=== PATIENT | male | born 1975 ===

== ENCOUNTER 2020-01-08 09:34 | Outpatient (REF) | payer BC, SELFPAY ==
[2020-01-08 12:01] LABS: Alanine Aminotransferase 90 U/L (0-40); Albumin Level 4.7 g/dL (3.5-5.0); Alkaline Phosphatase 62 U/L (39-117); Anion Gap 11 (12-20); Aspartate Amino Transferase 41 U/L (5-37); Bilirubin Total 0.9 mg/dL (0.0-1.0); Blood Urea Nitrogen 26 mg/dL (9-16); Calcium 9.5 mg/dL (8.4-10.2); Carbon Dioxide 29 mmol/L (22-29); Chloride 103 mmol/L (96-108); Cholesterol 231 mg/dL; Estimated Glomerular Filt Rate > 60; Glucose Fasting 80 mg/dL (60-99); HDL Cholesterol 56 mg/dL; LDL Cholesterol Calculated 162 mg/dl; Potassium 4.3 mmol/l (3.3-5.1); Sodium 139 mmol/L (135-145); TSH reflex Free T4 1.24 mIU/mL (0.32-4.0); Total Protein 7.2 g/dL (6.5-8.0); Triglycerides 69 mg/dL
== END 2020-01-08 09:35 | disposition home or self-care (01) ==
LOC: HO.HMGCLDS 09:34
PROVIDERS: PCP Nurse Practitioner Family; Visit Provider Nurse Practitioner Family
DX: Z00.00 Encounter for general adult medical examination without abnormal findings (principal)
CPT/HCPCS: 80053; 80061; 84443

== ENCOUNTER 2022-10-17 14:57 | Outpatient (AMB) | payer SELFPAY ==
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
[2022-10-17 15:59] VITALS: BP 120/80; PULSE 91; O2SAT 98; BMI 28.8
== END 2022-10-17 16:44 | disposition home or self-care (01) ==
PROVIDERS: PCP Nurse Practitioner Family; Visit Provider Internal Medicine
DX: M25.461 Effusion, right knee (principal); R20.2 Paresthesia of skin; R35.0 Frequency of micturition
CPT/HCPCS: 82948; 99214

== ENCOUNTER 2022-10-18 07:14 | Outpatient (REF) | payer SELFPAY ==
[2022-10-18 12:11] LABS: Estimated Average Glucose 105 mg/dL; Hemoglobin A1c % 5.3 % (<6.0)
[2022-10-18 12:16] LABS: Hematocrit 48.2 % (42.0-52.0); Hemoglobin 15.2 g/dl (14.0-18.0); Mean Corpuscular HGB Conc 31.5 g/dl (31.0-36.0); Mean Corpuscular Hemoglobin 29.6 pg (27.0-33.0); Mean Platelet Volume 12.4 fL (9.4-12.4); Platelet Count 164 X10*3/uL (160-400); Red Blood Count 5.13 X10*6/uL (4.60-5.80); Red Cell Distribution Width 12.6 % (11.0-16.0)
[2022-10-18 12:45] LABS: Anion Gap 10 (12-20); Blood Urea Nitrogen 26 mg/dL (9-16); Calcium 9.5 mg/dL (8.4-10.2); Carbon Dioxide 30 mmol/L (22-29); Chloride 105 mmol/L (96-108); Estimated Glomerular Filt Rate > 60; Glucose Random 140 mg/dL (60-115); Potassium 4.2 mmol/L (3.3-5.1); Sodium 141 mmol/L (135-145)
[2022-10-18 12:58] LABS: Erythrocyte Sedimentation Rate 3 MM/HR (0-15)
== END 2022-10-18 07:15 | disposition home or self-care (01) ==
LOC: HO.HMGCLDS 07:14
PROVIDERS: PCP Nurse Practitioner Family; Visit Provider Internal Medicine
DX: R20.2 Paresthesia of skin (principal)
CPT/HCPCS: 36415; 80048; 83036; 85027; 85652

== ENCOUNTER 2023-12-20 13:48 | Outpatient (AMB) | payer OTHER, SELFPAY ==
[2023-12-20 13:59] VITALS: BP 120/80; PULSE 77; O2SAT 98; BMI 30.1
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
== END 2023-12-20 14:44 | disposition home or self-care (01) ==
PROVIDERS: PCP Nurse Practitioner Family; Visit Provider Nurse Practitioner Family
DX: Z00.00 Encounter for general adult medical examination without abnormal findings (principal); Z12.5 Encounter for screening for malignant neoplasm of prostate; Z12.11 Encounter for screening for malignant neoplasm of colon; M51.16 Intervertebral disc disorders with radiculopathy, lumbar region

== ENCOUNTER → 2023-12-20 13:48 | Outpatient (BNVA) | payer BC, SELFPAY | PROVIDERS: PCP Nurse Practitioner Family; Visit Provider Nurse Practitioner Family | DX: Z00.00 Encounter for general adult medical examination without abnormal findings (principal); M51.16 Intervertebral disc disorders with radiculopathy, lumbar region | CPT/HCPCS: 96127 ==

== ENCOUNTER 2023-12-26 06:03 | Outpatient (REF) | payer OTHER, SELFPAY ==
[2023-12-26 10:02] LABS: MANUAL DIFF FLAG NO
[2023-12-26 10:17] LABS: Basophils Percent Auto 0.8 % (0-2); Eosinophils Absolute Auto 0.1 X10*3/uL (0.0-0.4); Eosinophils Percent Auto 1.6 % (0-4); Hematocrit 45.5 % (42.0-52.0); Imm Gran Abs Auto 0.01 X10*3/uL (0.00-0.03); Imm Gran Pct Auto 0.2 % (0.0-0.4); Lymphocytes Absolute Auto 1.5 X10*3/uL (1.2-4.9); Lymphocytes Percent Auto 29.4 % (20-40); Mean Corpuscular Hemoglobin 29.6 pg (27.0-33.0); Mean Corpuscular Volume 89.7 fL (80.0-98.0); Mean Platelet Volume 11.8 fL (9.4-12.4); Monocytes Absolute Auto 0.4 X10*3/uL (0.1-1.2); Monocytes Percent Auto 8.4 % (2-11); Neutrophils Percent Auto 59.6 % (45-73); Platelet Count 179 X10*3/uL (160-400); Red Blood Count 5.07 X10*6/uL (4.60-5.80); Red Cell Distribution Width 12.5 % (11.0-16.0); White Blood Count 5.1 X10*3/uL (4.8-10.8)
[2023-12-26 10:20] LABS: Appearance Urine Clear; Color Urine Yellow; Glucose Urine UA Negative (Negative); Leukocyte Esterase Urine Moderate (2+) (Negative); Nitrite Urine Negative (Negative); Specific Gravity - Urine 1.015 (1.005-1.025); UMIC TRIGGER UACC YES; Urine Blood Negative (Negative); Urine Ketones Negative (Negative); Urine Protein Negative (Neg-Trace)
[2023-12-26 10:26] LABS: Bacteria Urine None Seen (None Seen); Hyaline Casts Urine 0-2 /LPF (0-2); RBC Urine 0-2 /HPF (0-2); Squamous Epithelial Cell Urine 0-2 /HPF (0-2); UACC Culture Trigger YES; WBC Urine 21-50 /HPF (0-5)
[2023-12-26 10:32] LABS: Alanine Aminotransferase 43 U/L (0-40); Albumin Level 4.1 g/dL (3.5-5.0); Alkaline Phosphatase 63 U/L (39-117); Anion Gap 12 (12-20); Aspartate Amino Transferase 33 U/L (5-37); Bilirubin Total 0.5 mg/dL (0.0-1.0); Blood Urea Nitrogen 22 mg/dL (9-16); Calcium 9.2 mg/dL (8.4-10.2); Carbon Dioxide 26 mmol/L (22-29); Chloride 106 mmol/L (96-108); Cholesterol 187 mg/dL (<200); Estimated Glomerular Filt Rate > 60; Glucose Fasting 95 mg/dL (60-99); HDL Cholesterol 54 mg/dL (>40); LDL Cholesterol Calculated 113 mg/dL (<100); Potassium 4.1 mmol/L (3.3-5.1); Sodium 140 mmol/L (135-145); Total Protein 6.9 g/dL (6.5-8.0); Triglycerides 100 mg/dL (<150)
[2023-12-26 10:46] LABS: TSH reflex Free T4 1.97 uIU/mL (0.32-4.0)
[2023-12-26 10:51] LABS: Prostate Specific Antigen Scr 2.71 ng/mL (<0.05-4.0)
== END 2023-12-26 06:04 | disposition home or self-care (01) ==
LOC: HO.HMGCLDS 06:03
PROVIDERS: PCP Nurse Practitioner Family; Visit Provider Nurse Practitioner Family
DX: Z00.00 Encounter for general adult medical examination without abnormal findings (principal); Z12.5 Encounter for screening for malignant neoplasm of prostate
CPT/HCPCS: 36415; 80053; 80061; 81001; 81003; 84153; 84443; 85025; 87086

== ENCOUNTER 2024-01-09 08:28 | Outpatient (REF) | payer OTHER, SELFPAY ==
--- NOTE | ~2024-01-09 | US_ITS ---
EXAMINATION: US ABDOMEN COMPLETE CLINICAL INFORMATION: Abnormal levels of other serum enzymes. COMPARISON: Ultrasound abdomen complete 07/22/2015. TECHNIQUE: Real-time imaging of the abdominal viscera. FINDINGS: PANCREAS: Visualized portions are unremarkable. ABDOMINAL AORTA: The proximal, mid, and distal segments are normal in caliber. INFERIOR VENA CAVA: Visualized portions are normal. LIVER: The liver is normal in size. The liver contour is normal. Increased echogenicity of the liver parenchyma, this can be seen in the setting of hepatic steatosis or liver parenchymal disease. No focal hepatic lesion. There is no intrahepatic biliary duct dilatation seen. GALLBLADDER: The gallbladder is physiologically distended without evidence of stones, sludge, polyps, wall thickening or pericholecystic fluid. COMMON BILE DUCT: Normal in caliber measuring 0.37 cm in diameter. RIGHT KIDNEY: No hydronephrosis. No renal calculi or focal parenchymal lesions. The kidney measures 11.4 cm in maximum dimension. LEFT KIDNEY: No hydronephrosis. No renal calculi or focal parenchymal lesions. The kidney measures 12.7 cm in maximum dimension. SPLEEN: The spleen measures 11.0 cm in maximum dimension. FREE FLUID: None. US/US abdomen complete IMPRESSION: Increased echogenicity of the liver parenchyma, this can be seen in the setting of hepatic steatosis or liver parenchymal disease. Ultrasound otherwise normal. Electronically signed by: Jah Mccall MD 01/27/2024 01:00 PM [facility]
== END 2024-01-09 08:29 | disposition home or self-care (01) ==
LOC: HO.HMGCX 08:28
PROVIDERS: PCP Nurse Practitioner Family; Visit Provider Nurse Practitioner Family
DX: R74.8 Abnormal levels of other serum enzymes (principal)
CPT/HCPCS: 76700

== ENCOUNTER 2024-02-05 09:31 | Outpatient (AMB) | payer OTHER, SELFPAY ==
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
[2024-02-05 09:50] VITALS: BP 120/78; PULSE 83; O2SAT 99; BMI 29.7
== END 2024-02-05 10:22 | disposition home or self-care (01) ==
PROVIDERS: PCP Nurse Practitioner Family; Referring Provider Nurse Practitioner Family; Visit Provider Nurse Practitioner Family
DX: M51.16 Intervertebral disc disorders with radiculopathy, lumbar region (principal); M48.061 Spinal stenosis, lumbar region without neurogenic claudication; M54.50 Low back pain, unspecified; G89.29 Other chronic pain; M47.817 Spondylosis without myelopathy or radiculopathy, lumbosacral region
CPT/HCPCS: 99204

== ENCOUNTER 2024-02-20 11:32 | Outpatient (AMB) | payer OTHER, SELFPAY ==
[2024-02-20 11:39] VITALS: BP 122/80; PULSE 90; O2SAT 98; BMI 31.0
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
== END 2024-02-20 12:20 | disposition home or self-care (01) ==
PROVIDERS: PCP Nurse Practitioner Family; Visit Provider Internal Medicine
DX: M54.9 Dorsalgia, unspecified (principal); Z13.9 Encounter for screening, unspecified

== ENCOUNTER → 2024-02-20 11:32 | Outpatient (BNVA) | payer OTHER, SELFPAY | PROVIDERS: PCP Nurse Practitioner Family; Visit Provider Internal Medicine | DX: M54.9 Dorsalgia, unspecified (principal); Z87.442 Personal history of urinary calculi | CPT/HCPCS: 81003 ==

== ENCOUNTER 2024-04-29 09:58 | Outpatient (AMB) | payer OTHER, SELFPAY ==
[2024-04-29 10:02] VITALS: BP 112/70; PULSE 68; RESP 16; TEMP 36.7; O2SAT 97; BMI 30.3
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
--- OUTSIDE RECORDS SUMMARY | 2024-04-29 11:40 | XMS_ITS | Clinical Summary ---
Author Organization [facility] ity Address [address] [place] [address] Care Team Providers Care Tile Grader Name Role Phone Unavailable Primary Care Provider Unavailabl e Surgical History Surgery Date Site/Laterality Comments APPENDECTOMY PROCEDURE: HISTORICAL APPENDECTOMY Family History Medical History Relation Name Comments Depression Brother 1 Other: pad Grandparent 1 also with cad Relation Name Status Comments Brother 1 Brother 2 Grandparent 1 Grandparent 2 Social History Tobacco Use Types Packs/Day Years Used Date Smoking Tobacco: Never Smokeless Tobacco: Never Alcohol Use Standard Drinks/Week Comments Yes 0 (1 standard drink = 0.6 oz pur e alcohol) Sex and Gender Information Value Date Recorded Sex Assigned at Not on file Legal Sex Male 5:40 AM EST Gender Identity Not on file Sexual Orientation Not on file Obstetrics History Plan of Treatment Health Maintenance Due Date Last Done Comments Hepatitis B Vaccines (1 of 3 - 19+ 3-dose series) 1994 DTaP,Tdap,and Td Vaccines (2 - Td or Tdap) 01/03/2022 01/04/2012 Cholesterol Screening (Lipid Panel) 01/08/2022 Colorectal Cancer Screening: Colonoscopy 01/08/2022 Depression Screening 01/08/2022 HIV Screening 01/08/2022 Hepatitis C Screening 01/08/2022 Social Influencers of Health Screening 01/08/2022 COVID-19 Vaccine (2023-2 5 season) 2023 Influenza Vaccine (#1) 2023 HIB Vaccines Aged Out No longer eligi ble based on patient's age to complete this topic HPV Vaccines Aged Out No longer eligi ble based on patient's age to complete this topic Hepatitis A Vaccines Aged Out No long er eligible based on patient's age to complete this topic IPV Vaccines Aged Out No longer eligi ble based on patient's age to complete this topic MMR Vaccines Aged Out No longer eligi ble based on patient's age to complete this topic Meningococcal ACWY Vaccine Aged Out N o longer eligible based on patient's age to complete this topic Meningococcal B Vacine Aged Out No lo nger eligible based on patient's age to complete this topic Pneumococcal Vaccine: Pediat rics (0 to 5 Years) and At-Risk Patients (6 to 64 Years) Aged Out No longer eligi ble based on patient's age to complete this topic RSV Immunization Patients Un ally 20 months Aged Out No longer eligible b ased on patient's age to complete this topic Varicella Vaccines Aged Out No longer eligible based on patient's age to complete this topic
== END 2024-04-29 10:38 | disposition home or self-care (01) ==
LOC: HO.HMCC 09:59
PROVIDERS: PCP Nurse Practitioner Family; Visit Provider Nurse Practitioner Family
DX: M51.16 Intervertebral disc disorders with radiculopathy, lumbar region (principal); M54.50 Low back pain, unspecified; G89.29 Other chronic pain; K76.0 Fatty (change of) liver, not elsewhere classified

== ENCOUNTER → 2024-04-29 09:58 | Outpatient (BNVA) | payer OTHER, SELFPAY | PROVIDERS: PCP Nurse Practitioner Family; Visit Provider Nurse Practitioner Family ==

== ENCOUNTER 2024-05-19 08:54 | Outpatient (AMB) | payer OTHER, SELFPAY ==
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
[2024-05-19 09:00] VITALS: BP 131/63; PULSE 77; O2SAT 98; BMI 30.7
--- OUTSIDE RECORDS SUMMARY | 2024-05-19 09:43 | XMS_ITS | Clinical Summary ---
Author Organization [facility] ity Address [address] [place] [address] Care Team Providers Care Electronics Lead Name Role Phone Unavailable Primary Care Provider [...] Influencers of Health Screening 01/08/2022 COVID-19 Vaccine ( - 2023-2 5 season) 2023 Influenza Vaccine (Season Ended) 2024 HIB Vaccines Aged Out No longer eligi [...] age to complete this topic Meningococcal B Vaccine Aged Out No l onger eligible based on patient's age to complete [...]
== END 2024-05-19 09:28 | disposition home or self-care (01) ==
LOC: HO.PMC 08:55
PROVIDERS: PCP Nurse Practitioner Family; Visit Provider Nurse Practitioner Family
DX: M51.16 Intervertebral disc disorders with radiculopathy, lumbar region (principal); M48.061 Spinal stenosis, lumbar region without neurogenic claudication; M54.50 Low back pain, unspecified; G89.29 Other chronic pain; M47.817 Spondylosis without myelopathy or radiculopathy, lumbosacral region
CPT/HCPCS: 99214

== ENCOUNTER → 2024-05-19 08:54 | Outpatient (BNVA) | payer OTHER, SELFPAY | PROVIDERS: PCP Nurse Practitioner Family; Visit Provider Nurse Practitioner Family ==

== ENCOUNTER 2024-10-23 06:24 | Outpatient (REF) | payer OTHER, SELFPAY ==
--- NOTE | ~2024-10-23 | FL_ITS ---
EXAMINATION: FL GUIDANCE ONLY HISTORY: M51.16 - Intervertebral disc disorders with radiculopathy, lumbar region COMPARISON: None available. TECHNIQUE: Fluoroscopy time: 0.1 minute. Cumulative Dose: 3.87 mGy. DAP: 0.326 mGym2 Images: 3. FINDINGS: Fluoroscopic spot films of the lumbar spine demonstrate a needle and contrast material inferior to a right-sided pedicle. It is not possible to determine which level this represents on the basis of these images. FL/FL guidance in treatment room IMPRESSION: Fluoroscopy during procedure. Please see procedure report for additional information. Electronically signed by: Pierre Tyler MD 10/23/2024 03:17 PM EDT
--- OUTSIDE RECORDS SUMMARY | 2024-10-23 06:26 | XMS_ITS | Clinical Summary ---
Author Organization [facility] ity Address [address] [place] [address] Care Team Providers Care Colon And Rectal Surgeon Name Role Phone Unavailable Primary Care Provider [...] Panel) 01/08/2022 Colorectal Cancer Screening: Colonoscopy 01/08/2022 HIV Screening 01/08/2022 Hepatitis C Screening 01/08/2022 Social Influencers of Health Screening 01/08/2022 Depression Screening 02/06/2024 COVID-19 Vaccine (2023-2 5 season) 2024 Influenza Vaccine (#1) 2024 HIB Vaccines Aged Out No longer [...] 5 Years) and At-Risk Patients (6 to 49 Years) Aged Out No longer eligi ble based on patient's age to complete this topic RSV Immunization Patients Un ally 20 months Aged Out No longer eligible b ased on patient's age to complete this topic Varicella Vaccines Aged Out No longer eligible based on patient's age to complete this topic
== END 2024-10-23 06:25 | disposition home or self-care (01) ==
LOC: CF 06:24
PROVIDERS: Visit Provider Internal Medicine
DX: M51.16 Intervertebral disc disorders with radiculopathy, lumbar region (principal)
CPT/HCPCS: 64483; J1100; J2003; Q9967

== ENCOUNTER 2024-10-23 13:13 | Outpatient (AMB) | payer OTHER, SELFPAY ==
[2024-10-23 13:19] VITALS: BP 126/86; PULSE 91; RESP 16; O2SAT 98; BMI 30.7
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
[2024-10-23 13:45] VITALS: BP 118/79; PULSE 74; RESP 16; O2SAT 96
--- OUTSIDE RECORDS SUMMARY | 2024-10-23 15:14 | XMS_ITS | Clinical Summary ---
Author Organization [facility] [address] ity Address [address] [place] [address] Care Team Providers Care Information Management Specialist Name Role Phone Unavailable Primary Care Provider [...]
== END 2024-10-23 13:55 | disposition home or self-care (01) ==
LOC: HO.PMCPRC 13:13
PROVIDERS: PCP Nurse Practitioner Family; Visit Provider Internal Medicine
DX: M51.16 Intervertebral disc disorders with radiculopathy, lumbar region (principal)
CPT/HCPCS: 64483

== ENCOUNTER 2024-11-20 14:21 | Outpatient (AMB) | payer OTHER, SELFPAY ==
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
[2024-11-20 14:45] VITALS: BP 128/59; PULSE 92; O2SAT 98; BMI 31.3
== END 2024-11-20 15:26 | disposition home or self-care (01) ==
LOC: HO.PMC 14:22
PROVIDERS: PCP Nurse Practitioner Family; Visit Provider Nurse Practitioner Family
DX: M51.16 Intervertebral disc disorders with radiculopathy, lumbar region (principal); M54.50 Low back pain, unspecified; G89.29 Other chronic pain; M47.817 Spondylosis without myelopathy or radiculopathy, lumbosacral region; M53.3 Sacrococcygeal disorders, not elsewhere classified
CPT/HCPCS: 99214; G2211

== ENCOUNTER 2024-12-01 09:47 | Outpatient (AMB) | payer OTHER, SELFPAY ==
--- NOTE | 2024-12-01 10:17 | A.SPINEOV_ITS ---
Vital Signs 12/01/24 10:17 Height 5 ft 11 in Weight 215 lb BMI 30.0 Intake Visit Reasons: low back pain Intake Note: Mr. Graham is here today c/o back and leg pain. MRI done at [facility]. 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 This is a 49-year-old gentleman who presents to the office today for a right-sided low back pain. He has had the pain for at least 15 years. 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 The pain is particularly worse when he is getting up in the morning. As he gets moving around it gets a little bit better. Sitting is particularly worse than any other position. Bending and lifting can also be a problem. He has no pain going down the leg. At 1 point he did, but that has been gone. He has been through numerous rounds of conservative treatment including physical therapy, patient care as well as cortisone injections. He did a number of different cortisone injections at [facility]. There was 1 particular injection he had done that did last him a number of months but he can not recall exactly what it was. He did undergo a right L4, L5 TFESI at your office, but tells me that he did not have leg pain at the time so it was not exactly sure what the injection was 4. It did not help his back pain. He takes Advil and naproxen as needed. He also listed diclofenac as 1 of his medications as well. He is here today with an MRI done at [facility] showing degenerative disc more so at the L5-S1 with Modic endplate changes and foraminal narrowing. PMH: He is otherwise healthy denies any systemic disease or medical problems, has never had surgery Social hx: Does not smoke, drink use any recreational drugs Medications: Just the ones listed above Allergies: None Physical exam: Awake alert oriented no acute distress, able to stand walk with no obvious gait abnormality, strength and reflexes normal, positive finger Imelda, positive LYUDMILA testing generating pain in the low back. Imaging review: Lumbar MRI done at [facility] shows mild to moderate disc degeneration primarily at L5-S1 with some subtle Modic endplate changes on the right side. There is [id number] foraminal narrowing at the right L4 foramen in the right L5. Impression: 49-year-old gentleman presents for evaluation of right-sided low back pain, has had the pain for more than 15 years. [facility] treatment including injections at [facility] as well as hear at your office. He has no lower extremity radicular symptoms. Symptoms are particularly bad in the morning get better when he gets going. He has a very hard time sitting for any length of time. He did have successful response to this pain with an injection done at [facility] years ago and tells me that the pain was gone for least a few months. I am going to get the records to see where they injected. The L4/5 TFE here was not helpful. While he does have some disc degeneration at L5-S1 with some foraminal narrowing, in the absence of lower extremity symptoms, it would be hard to offer him decompression. With back pain being his primary complaint, the surgical intervention for that would be spinal fusion but his MRI is just showing [id number] degeneration. He is in that group of patients where it is hard to give him predictable odds as to whether his disc disease is the source of his pain and therefore whether spinal fusion would be beneficial for him. Because the pain is not disabling and he is so young, generally Dr. Lora would not offer him fusion surgery. He is still quite functional able to move around, go to work etc.. We are going to contact the [email or web address] office and get a copy of the records where he had the injection done and see if by chance it was the SI joint injection that gave him so much relief as a lot of his pain is on the right over the SI joint. Thank you for allowing us to care for your patient. The total time spent with this visit with this patient was 45 minutes reviewing history, physical exam, lumbar imaging review, and implementation of treatment plan or further diagnostic testing Henry Lora MD,PhD [facility] Coding Level of Care Code New Pt Level 4 (88229) Diagnoses Chronic low back pain M54.50; G89.29
--- OUTSIDE RECORDS SUMMARY | 2024-12-01 11:18 | XMS_ITS | Clinical Summary ---
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 Name Role Phone Unavailable Primary Care Provider [...] Health Maintenance Due Date Last Done Comments Colorectal Cancer Screening: Colonoscopy 1975 Hepatitis B Vaccines (1 of 3 - 19+ 3-dose series) 1994 DTaP,Tdap,and Td Vaccines (2 - Td or Tdap) 01/03/2022 01/04/2012 Cholesterol Screening (Lipid Panel) 01/08/2022 HIV Screening 01/08/2022 Hepatitis C Screening 01/08/2022 Social Influencers of Health Screening 01/08/2022 Depression Screening 02/06/2024 COVID-19 Vaccine ( - 2023-2 5 season) 2024 Influenza Vaccine (#1) 2024 RSV Immunization Adult Patie nts (1 - 1-dose 75+ series) 2050 HIB Vaccines Aged Out No longer eligi [...]
== END 2024-12-01 11:28 | disposition home or self-care (01) ==
LOC: HO.HNS 09:47
PROVIDERS: PCP Nurse Practitioner Family; Referring Provider Nurse Practitioner Family; Visit Provider Physician Assistant
DX: M54.50 Low back pain, unspecified (principal); G89.29 Other chronic pain
CPT/HCPCS: 99204